=== PATIENT | female | born 1965 ===

== ENCOUNTER → 2016-07-21 | Outpatient (REF) ==
--- NOTE | 2016-07-21 14:51 | REP ---
History of degenerative disc disease. Assess for disability. COMPARISON EXAMINATION: None. Only AP and lateral views were obtained. There is posterior disc space narrowing seen at every level with mild anterior lipping. Vertebral body height alignment is within normal limits. The pedicles are intact bilaterally. IMPRESSION: Chronic changes as described above. Signed by Doroteo Sosa DO 07/21/2016 03:49 P
--- NOTE | 2016-07-21 15:15 | REP ---
AP AND LATERAL LUMBAR SPINE, FOUR VIEWS: HISTORY: Degenerative disc disease. The cervical spine is visualized from C1 to C6 in the lateral radiograph. There is no acute fracture or subluxation. The C4-5 and C5-6 intervertebral discs are decreased in height consistent with disc degeneration. Osteophytes are present on C4 and C5. IMPRESSION: Degenerative change as described above. Signed by Bryant Blakc MD 07/21/2016 03:17 P
== END ==
LOC: M SMT 13:19
PROVIDERS: ATTEND Internal Medicine
DX: Z02.1 Encounter for pre-employment examination (principal)